=== PATIENT | female | born 1975 | race African-American/Black ===

== ENCOUNTER 2020-04-14 02:06 | Emergency (ER) | payer MEDICAID ==
[~2020-04-14] VITALS: Ht 162.6 cm; Wt 55.0 kg
[2020-04-14 03:41] LABS: CLARITY URINE CLEAR (CLEAR); COLOR URINE YELLOW (YELLOW); KETONES URINE NEGATIVE (NEGATIVE); LEUKOCYTE ESTERASE URINE NEGATIVE (NEGATIVE); NITRITE URINE NEGATIVE (NEGATIVE); OCCULT BLOOD URINE NEGATIVE (NEGATIVE); PH URINE 5.5 (4.5-8.0); PROTEIN URINE NEGATIVE (NEGATIVE); SPECIFIC GRAVITY URINE 1.011 (1.005-1.030); UROBILINOGEN URINE 0.2 E.U./dL (0.2-1.0)
[2020-04-14] MEDS ORDERED: KETOROLAC 60MG/2ML VIAL IM ONE (04:00)
[2020-04-14 04:06] VITALS: BP 105/71
== END 2020-04-14 04:46 | disposition home or self-care (01) ==
LOC: ER 02:06
DX: S39.012A Strain of muscle, fascia and tendon of lower back, initial encounter (principal); W01.0XXA Fall on same level from slipping, tripping and stumbling without subsequent striking against object, initial encounter; Y93.89 Activity, other specified; Y92.89 Other specified places as the place of occurrence of the external cause
CPT/HCPCS: 81003; 81025; 96372; 99283; J1885